=== PATIENT | male | born 1945 | race Caucasian/White ===

== ENCOUNTER → 2024-02-26 12:38 | Outpatient (REF) | payer MEDICARE, OTHER, SELFPAY | LOC: RCS 12:38 | PROVIDERS: ATTENDING PHYSICIAN Internal Medicine Clinical Cardiac Electrophysiology; FAMILY PHYSICIAN Internal Medicine | DX: Z01.818 Encounter for other preprocedural examination (principal); R06.09 Other forms of dyspnea; I45.0 Right fascicular block; I42.1 Obstructive hypertrophic cardiomyopathy; I34.0 Nonrheumatic mitral (valve) insufficiency | CPT/HCPCS: 93306; Q9950 ==